=== PATIENT | female | born 1995 | race African-American/Black ===

== ENCOUNTER 2016-06-19 15:18 | Emergency (ER) | payer OTHER ==
[~2016-06-19] VITALS: Ht 157.5 cm; Wt 52.2 kg
[2016-06-19 15:23] VITALS: BP 122/74
--- NOTE | 2016-06-19 16:04 | PHYS DOC ---
Past Medical History Past Medical History: No Pertinent History Additional Past Medical Histor: sickle cell trait Past Surgical History: , Tonsillectomy Alcohol Use: None Drug Use: None Adult General Chief Complaint Chief Complaint: BACK PAIN OR INJURY [facility] HPI Patient is a 20 year old female with no significant medical history who presents with mid back pain injured her left abdominal pain that has been going on for week. Patient states she believes she is constipated, she states her last bowel movement was one week ago. Patient denies any fever nausea vomiting. Denies any urgency frequency or dysuria. She states she is not sure if she is or not, she states she does not know when her last menstrual cycle was. Patient has been laughing and playing with the male friend since arrival to the Ed. Review of Systems Review of Systems Constitutional: Denies fever or chills [] Eyes: Denies change in visual acuity, redness, or eye pain [] HENT: Denies nasal congestion or sore throat [] Respiratory: Denies cough or shortness of breath [] Cardiovascular: No additional information not addressed in HPI [] GI: abdominal pain : Denies dysuria or hematuria [] Musculoskeletal: mid back pain Integument: Denies rash or skin lesions [] Neurologic: Denies headache, focal weakness or sensory changes [] Endocrine: Denies polyuria or polydipsia [] Current Medications Current Medications Current Medications Medications (Trade) Dose Ordered Sig/Nely Start Time Stop Time Status Last Admin Dose Admin Magnesium Citrate (Citroma) 296 ml 1X ONCE 06/19/16 18:00 06/19/16 18:01 Allergies Allergies Allergies Coded Allergies Type Severity Reaction Last Updated Verified No Known Drug Allergies 02/19/14 No Physical Exam Physical Exam Constitutional: Well developed, well nourished, no acute distress, non-toxic appearance. [] HENT: Normocephalic, atraumatic, bilateral external ears normal, oropharynx moist, no oral exudates, nose normal. [] Eyes: PERRLA, EOMI, conjunctiva normal, no discharge. [] Neck: Normal range of motion, no tenderness, supple, no stridor. [] Cardiovascular:Heart rate regular rhythm, no murmur [] Lungs & Thorax: Bilateral breath sounds clear to auscultation [] Abdomen: Bowel sounds normal, soft, no tenderness, no masses, no pulsatile masses. [] Skin: Warm, dry, no erythema, no rash. [] Back: No tenderness, no CVA tenderness. [] Extremities: No tenderness, no cyanosis, no clubbing, ROM intact, no edema. [] Neurologic: Alert and oriented X 3, normal motor function, normal sensory function, no focal deficits noted. [] Psychologic: Affect normal, judgement normal, mood normal. [] Current Patient Data Vital Signs Vital Signs Date Time Temp Pulse Resp B/P Pulse Ox O2 Delivery O2 Flow Rate FiO2 06/19/16 15:23 98.1 83 16 122/74 100 Room Air 98.1 Lab Values Laboratory Tests Test 06/19/16 17:05 Urine Collection Type Unknown Urine Color Yellow Urine Clarity Clear Urine pH 7.5 Urine Specific [place] 1.010 Urine Protein Negativemg/dL (NEG-TRACE) Urine Glucose (UA) Negativemg/dL (NEG) Urine Ketones (Stick) Negativemg/dL (NEG) Urine Blood Negative (NEG) Urine Nitrite Negative (NEG) Urine Bilirubin Negative (NEG) Urine Urobilinogen Dipstick 0.2mg/dL (0.2 mg/dL) Urine Leukocyte Esterase Negative (NEG) Urine RBC 0/HPF (0-2) Urine WBC 0/HPF (0-4) Urine Squamous Epithelial Cells Few/LPF Urine Bacteria 0/HPF (0-FEW) Urine Mucus Mod/LPF EKG EKG [] Radiology/Procedures Radiology/Procedures []PROCEDURE: ACUTE ABDOMEN SERIES Abdomen series with chest, 3 views, 06/19/2016: History: Chronic abdominal pain, constipation There is gas and a moderate amount of stool scattered throughout the colon in a nonspecific pattern. No free air is seen in the abdomen. There is no evidence of organomegaly or abnormal abdominal calcifications. The heart size is normal. The lungs are clear. IMPRESSION: No acute abdominal abnormality is detected. DICTATED and SIGNED BY: ARIEL WATTERS MD DATE: 06/19/16 6445 CC: MIRIAM MILLS APRN; NO PCP ~ Course & Med Decision Making Course & Med Decision Making Pertinent Labs and Imaging studies reviewed. (See chart for details) Patient is in the Ed complaining of mid back pain and constipation with generalized abdominal pain. She has been laughing and playing with the boy friend since she came to the Ed. Her last bowel movement was one week ago, she denies any nausea vomiting. Negative urine hCG, acute abdominal series interpreted by radiologist is negative for any acute findings but noted for gas and moderate amount of stool scattered throughout the colon in nonspecific pattern. Patient was given magnesium citrate in the ED and discharged with the same. We talked about the need to increase dietary fiber intake. We talked about the need to increase water intake. Educated patient on the dangers of taking narcotics especially the risk of increasing constipation because she was asking for oxycodone. Urine analysis is negative for infection. Discharged with MiraLAX, magnesium citrate, recommended enemas, naproxen and Flexeril for her back pain. Follow-up with PCP in 1-2 weeks as needed. Patient is complaining stating she is here to receive documents stating she can not lift anything greater than 20 pounds, she states she needs disability paperwork filled out showing she can not work. She states she's had trouble getting this paperwork filled out because no one is willing to fill it out. She is very argumentative. Informed her I can give her a note stating she cannot lift anything more than 20 pounds for 3 days but nothing more than that. Informed her if she needs a disability paperwork filled out she needs to see a primary care doctor, i gave her a list of PCP's she states she does not want the list because she's been through this before and every doctor has refused to fill it. Informed patient I currently do not have any reason why she should be on disability. Informed patient emergency care does not involve feeling out documentation for disability hence she needs to see a primary care doctor for this. Attempted to give her primary care doctor's list, she stood up and left and refused all the paperwork. Dragon Disclaimer Dragon Disclaimer This electronic medical record was generated, in whole or in part, using a voice recognition dictation system. Departure Departure Impression: Primary Impression: Constipation Additional Impression: Back pain Disposition: 01 HOME, SELF-CARE Condition: STABLE Referrals: NO PCP (PCP) Follow-up with your primary care doctor in one week Patient Instructions: Back Pain, Adult, Constipation, Adult Additional Instructions: Your abdominal x-ray is noted for constipation. Please do not take any narcotics including hydrocodone and oxycodone because this will increase your constipation making it worse. Please increase your dietary fiber intake as well as a water intake to 64 ounces a day. Please consider taking MiraLAX every day to prevent constipation. Please take magnesium citrate every day until you have a bowel movement. Consider doing an enema once at night until your bowels start to move. Come back to the ED symptoms worsen. Scripts Cyclobenzaprine Hcl 10 Mg Tablet1 Tab PO TID #30 TAB Prov:MIRIAM MILLS APRN 06/19/16 Naproxen 500 Mg Tablet.dr1 Tab PO BID #60 TAB Ref 2 Prov:MIRIAM MILLS APRN 06/19/16 Magnesium Citrate 296 Ml [id number] Ml PO ONCE #296 ML Prov:MIRIAM MILLS APRN 06/19/16 Polyethylene Glycol 3350 (Miralax)17 Gm Powd.pack1 Packet PO DAILY #30 PACKET Ref 3 Prov:MIRIAM MILLS APRN 06/19/16 Problem Qualifiers Primary Impression: Constipation Constipation type: unspecified constipation type Qualified Code: K59.00 - Constipation, unspecified Additional Impression: Back pain Back pain location: thoracic back pain Chronicity: acute Back pain laterality: bilateral Qualified Code: M54.6 - Pain in thoracic spine MIRIAM MILLS APRN Jun 19, 2016 16:04
--- NOTE | 2016-06-19 17:07 | RAD ---
Abdomen series with chest, 3 views, 06/19/2016: History: Chronic abdominal pain, constipation There is gas and a moderate amount of stool scattered throughout the colon in a nonspecific pattern. No free air is seen in the abdomen. There is no evidence of organomegaly or abnormal abdominal calcifications. The heart size is normal. The lungs are clear. IMPRESSION: No acute abdominal abnormality is detected.
[2016-06-19 17:17] LABS: BILIRUBIN,URINE NEGATIVE (NEG); GLUCOSE,URINE NEGATIVE (NEG); NITRITE,URINE NEGATIVE (NEG); PH,URINE 7.5; PROTEIN,URINE NEGATIVE (NEG-TRACE); UROBILINOGEN,URINE 0.2 mg/dL (0.2 mg/dL)
[2016-06-19 17:23] LABS: BACTERIA,URINE 0 /HPF (0-FEW); RBC,URINE 0 /HPF (0-2); SQUAMOUS EPITHELIAL CELL,UR FEW /LPF; WBC,URINE 0 /HPF (0-4)
[2016-06-19] MEDS ORDERED: NAPR500T8 PO (17:30)
[2016-06-19] MEDS ORDERED: MAGN296S PO (17:30)
[2016-06-19] MEDS ORDERED: POLY17PO5 PO (17:30)
[2016-06-19] MEDS ORDERED: CYCL10TA2 PO (17:30)
[2016-06-19] MEDS ORDERED: MAGNESIUM CITRATE 296 ML SOLUTION. PO ONE (18:00)
== END 2016-06-19 17:38 | disposition home or self-care (01) ==
LOC: ER 15:18
DX: K59.00 Constipation, unspecified (principal); M54.6 Pain in thoracic spine; D57.3 Sickle-cell trait; Z98.890 Other specified postprocedural states
CPT/HCPCS: 74022; 81001; 99285-25

== ENCOUNTER 2016-07-28 10:48 | Emergency (ER) | payer OTHER ==
[~2016-07-28] VITALS: Ht 157.5 cm; Wt 59.0 kg
[~2016-07-28 10:48] MED LIST: CYCL10TA2 PO; MAGN296S PO; NAPR500T8 PO; POLY17PO29 PO
--- NOTE | 2016-07-28 11:10 | PHYS DOC ---
Past Medical History Past Medical History: Other Additional Past Medical Histor: SICKLE CELL TRAIT, "BACK SPASMS" Past Surgical History: , Tonsillectomy Alcohol Use: None Drug Use: None Adult General Chief Complaint Chief Complaint: ABDOMINAL PAIN IN HPI HPI Patient is a 20 year old female who presents with suprapubic pain. She states been going on for 4 days. Nothing makes it better or worse. She does state that she's had issues with constipation and hasn't had a bowel movement for the last several days. She did have some nausea and vomiting and to [facility] this morning without any relief. She denies any dysuria or vaginal bleeding. She thinks she is about 6 weeks . She is a . She has had a history of gonorrhea, but she states his been "a minute ago". She is currently having a headache and states she took some Tylenol. Review of Systems Review of Systems Constitutional: Denies fever or chills [] Eyes: Denies change in visual acuity, redness, or eye pain [] HENT: Denies nasal congestion or sore throat [] Respiratory: Denies cough or shortness of breath [] Cardiovascular: No additional information not addressed in HPI [] GI: Positive for abdominal pain, Denies nausea, vomiting, bloody stools or diarrhea [] : Denies dysuria or hematuria [] Musculoskeletal: Denies back pain or joint pain [] Integument: Denies rash or skin lesions [] Neurologic: Denies headache, focal weakness or sensory changes [] Endocrine: Denies polyuria or polydipsia [] Current Medications Current Medications Current Medications Medications (Trade) Dose Ordered Sig/Nely Start Time Stop Time Status Last Admin Dose Admin Fentanyl Citrate (Fentanyl 2ml Vial) 50 mcg PRN Q15MIN PRN 07/28/16 13:15 07/28/16 15:06 DC 07/28/16 13:30 50 MCG Ondansetron HCl (Zofran) 4 mg 1X ONCE 07/28/16 13:00 07/28/16 13:01 DC 07/28/16 13:10 4 MG Sodium Chloride 1,000 ml @ 1,000 mls/hr 1X ONCE 07/28/16 13:00 07/28/16 13:59 DC 07/28/16 13:09 1,000 MLS/HR Allergies Allergies Allergies Coded Allergies Type Severity Reaction Last Updated Verified No Known Drug Allergies 02/19/14 No Physical Exam Physical Exam Constitutional: Well developed, well nourished, no acute distress, non-toxic appearance. [] HENT: Normocephalic, atraumatic, bilateral external ears normal, oropharynx moist, no oral exudates, nose normal. Tender to palpation over frontal and maxillary sinuses. Eyes: PERRLA, EOMI, conjunctiva normal, no discharge. [] Neck: Normal range of motion, no tenderness, supple, no stridor. [] Cardiovascular:Heart rate regular rhythm, no murmur [] Lungs & Thorax: Bilateral breath sounds clear to auscultation [] Abdomen: Bowel sounds normal, soft, tender to palpation in the suprapubic area, no masses, no pulsatile masses. Pelvic exam performed with a quality control checker at bedside, she is tender with the insertion of the speculum, she will not let me perform a bimanual exam, white discharge noted at the os, no bleeding noted. Skin: Warm, dry, no erythema, no rash. [] Back: No tenderness, no CVA tenderness. [] Extremities: No tenderness, no cyanosis, no clubbing, ROM intact, no edema. [] Neurologic: Alert and oriented X 3, normal motor function, normal sensory function, no focal deficits noted. [] Psychologic: Affect normal, judgement normal, mood normal. [] Current Patient Data Vital Signs Vital Signs Date Time Temp Pulse Resp B/P (MAP) Pulse Ox O2 Delivery O2 Flow Rate FiO2 07/28/16 14:18 77 98/50 (66) 100 Room Air 07/28/16 10:50 98.4 16 98.4 Lab Values Laboratory Tests Test 07/28/16 10:19 07/28/16 11:10 07/28/16 11:20 POC Urine HCG, Qualitative Hcg positive (Negative) Urine Collection Type Void Urine Color Yellow Urine Clarity Clear Urine pH 6.5 Urine Specific [place] >=1.030 Urine Protein Negative mg/dL (NEG-TRACE) Urine Glucose (UA) Negative mg/dL (NEG) Urine Ketones (Stick) >=80 mg/dL (NEG) Urine Blood Negative (NEG) Urine Nitrite Negative (NEG) Urine Bilirubin Negative (NEG) Urine Urobilinogen Dipstick 1.0 mg/dL (0.2 mg/dL) Urine Leukocyte Esterase Trace (NEG) Urine RBC 1-2 /HPF (0-2) Urine WBC Occ /HPF (0-4) Urine Squamous Epithelial Cells Many /LPF Urine Bacteria Few /HPF (0-FEW) Urine Mucus Marked /LPF White Blood Count 4.2 x10^3/uL (4.0-11.0) Red Blood Count 4.09 x10^6/uL (3.50-5.40) Hemoglobin 9.8 g/dL (12.0-15.5) L Hematocrit 30.1 % (36.0-47.0) L Mean Corpuscular Volume 74 fL (79-100) L Mean Corpuscular Hemoglobin 24 pg (25-35) L Mean Corpuscular Hemoglobin Concent 32 g/dL (31-37) Red Cell Distribution Width 13.8 % (11.5-14.5) Platelet Count 264 x10^3/uL (140-400) Neutrophils (%) (Auto) 50 % (31-73) Lymphocytes (%) (Auto) 37 % (24-48) Monocytes (%) (Auto) 11 % (0-9) H Eosinophils (%) (Auto) 1 % (0-3) Basophils (%) (Auto) 1 % (0-3) Neutrophils # (Auto) 2.1 x10^3uL (1.8-7.7) Lymphocytes # (Auto) 1.6 x10^3/uL (1.0-4.8) Monocytes # (Auto) 0.5 x10^3/uL (0.0-1.1) Eosinophils # (Auto) 0.0 x10^3/uL (0.0-0.7) Basophils # (Auto) 0.0 x10^3/uL (0.0-0.2) Prothrombin Time 14.2 SEC (11.7-14.0) H Prothrombin Time INR 1.2 (0.8-1.1) H PTT 26 SEC (24-38) Maternal Serum HCG Beta Subunit 15574 mIU/mL (0-6) H Sodium Level 136 mmol/L (136-145) Potassium Level 3.7 mmol/L (3.5-5.1) Chloride Level 101 mmol/L (98-107) Carbon Dioxide Level 22 mmol/L (21-32) Anion Gap 13 (6-14) Blood Urea Nitrogen 9 mg/dL (7-20) Creatinine 0.6 mg/dL (0.6-1.0) Estimated GFR (Cockcroft-Gault) 154.2 Glucose Level 84 mg/dL (70-99) Calcium Level 9.1 mg/dL (8.5-10.1) Magnesium Level 1.7 mg/dL (1.8-2.4) L Laboratory Tests 07/28/16 11:20 Laboratory Tests 07/28/16 11:20 Microbiology 07/28/16 Wet Prep - Final, Complete Microbiology 07/28/16 Wet Prep - Final, Complete EKG EKG [] Radiology/Procedures Radiology/Procedures [facility] [address] [place] [address] IMAGING REPORT Signed PATIENT: RAINA HENSON ACCOUNT: [id number] : 1995 LOCATION: ER AGE: 20 SEX: F EXAM STATUS: REG ER ORD. PHYSICIAN: MARGARETH GAYTAN MD REASON: abd pain PROCEDURE: OB < 14 WKS Early OB ultrasound History: Pelvic pain. Technique: Real-time grayscale sonographic images of the gravid uterus were performed transabdominally. Comparison: None. Findings: Transabdominal imaging: Uterus measures 12.1 cm in length. Single live intrauterine is identified with gestational sac, yolk sac, and embryonic pole seen. [place]-rump length is 8.7 mm corresponding to 6 weeks 6 days. Estimated delivery based on this measurement is 2017. Embryonic heart motion is 135 bpm. Right ovary measures 4.1 x 2.9 x 1.5 cm and demonstrates a hemorrhagic corpus luteum cyst. Left ovary measures 1.7 x 3.1 x 2.3 cm and is unremarkable. Both ovaries demonstrate normal vascular flow upon Doppler interrogation and are without evidence of torsion. Impression: 1. Single live intrauterine . Average ultrasound age is 6 weeks 6 days. Estimated date of delivery is March 17, 2017. DICTATED and SIGNED BY: MARIBEL CORNELIUS MD DATE: 07/28/16 1212 CC: MARGARETH GAYTAN MD; NO PCP ~ Impressions: abdominal pain in uti in sinusitis nausea Dehydration Course & Med Decision Making Course & Med Decision Making Pertinent Labs and Imaging studies reviewed. (See chart for details) RUN DATE: 07/28/16 PAGE 1 RUN TIME: 1202 [facility] [address] [place] [address] Deonte Eric M.D., [employer] Administrator PATIENT: RAINA HENSON ACCT: [id number] LOC: [place] U : [id number] AGE/SX: ROOM: REG : 07/28/[address]: MARGARETH GAYTAN MD : 1995 BED: DIS : STATUS: REG [place] TLOC: SPEC #: [id number] YVETTE: 07/28/16 STATUS: COMP REQ #: [id number] RECD: 07/28/[address] [facility] [address]: MARGARETH GAYTAN MD SOURCE: VAGINAL ENTR: 07/28/16-[address]: АНДРЕЙ MCCORMICK SPDESC: ORDERED: WET PREP COMMENTS: Has specimen been collected/obtained? Y Procedure Result WET PREP Final YEAST NONE SEEN TRICHOMONAS NONE SEEN CLUE CELLS NONE SEEN WBCS OCCASIONAL SQUAMOUS EPS MANY END OF REPORT U/s does not show any acute abnormalities. labs non acute. She received IV fluids and feels better. Her headache is likely sinusitis. She has issues with constipation and is agreeable to miralax and antinausea meds. Do not believe she has any thing bad going on in her pelvis with a reassuring ultrasound of her IUP. She is being discharged with Augmentin that will cover her urine in addition to her sinus infection. She is being prescribed claritin, rhinocort nasal steroid that should help with the pressure of her sinus infection. Return precautions given and she can follow up with Dr. Rinaldi if she doesnt have an OBGYN that she can see. Pt is in stable condition at this time and being discharged home. Dragon Disclaimer Dragon Disclaimer This electronic medical record was generated, in whole or in part, using a voice recognition dictation system. Departure Departure Impression: Primary Impression: Abdominal pain during Additional Impression: Sinusitis Disposition: HOME, SELF-CARE Condition: STABLE Referrals: NO PCP (PCP) OSKAR RINALDI Jr, MD Patient Instructions: - Urinary Tract Infection, Sinusitis Additional Instructions: You likely has a sinus infection and this is the headache that you are describing. You are being discharged with Augmentin for 7 days, Zofran, Claritin and budesonide nasal spray. This should help you with your sinus infection and your bladder infection. You should follow-up with her [facility] physician, return ER for fevers, neck stiffness, worsening headache or other concerns. Scripts Budesonide (Budesonide Nasal [place]) 8.6 Gm [place].pump 1 SPRAY NS DAILY, #1 EACH Prov: MARGARETH GAYTAN MD 07/28/16 Ondansetron (ZOFRAN ODT) 4 Mg Tab.rapdis 4 MG PO BID Y for NAUSEA/VOMITING, #14 TAB Prov: MARGARETH GAYTAN MD 07/28/16 Amoxicillin/Potassium Clav (AUGMENTIN 875-125 TABLET) 1 Each Tablet 1 TAB PO BID, #14 TAB Prov: MARGARETH GAYTAN MD 07/28/16 Loratadine (CLARITIN) 10 Mg Capsule 10 MG PO DAILY for 30 Days, #30 CAP Prov: MARGARETH GAYTAN MD 07/28/16 Problem Qualifiers Primary Impression: Abdominal pain during Trimester: first trimester Qualified Codes: O26.891 - Other specified related conditions, first trimester; R10.9 - Unspecified abdominal pain Additional Impression: Sinusitis Sinusitis location: frontal Chronicity: acute Recurrence: not specified as recurrent Qualified Codes: J01.10 - Acute frontal sinusitis, unspecified MARGARETH GAYTAN MD July 28, 2016 11:10
[2016-07-28 11:27] LABS: BILIRUBIN,URINE NEGATIVE (NEG); GLUCOSE,URINE NEGATIVE (NEG); NITRITE,URINE NEGATIVE (NEG); PH,URINE 6.5; PROTEIN,URINE NEGATIVE (NEG-TRACE)
[2016-07-28 11:38] LABS: BACTERIA,URINE FEW /HPF (0-FEW); SQUAMOUS EPITHELIAL CELL,UR MANY /LPF; WBC,URINE OCC /HPF (0-4)
[2016-07-28 11:46] LABS: INR 1.2 (0.8-1.1); PROTHROMBIN TIME PATIENT 14.2 SEC (11.7-14.0)
[2016-07-28 11:47] LABS: BASO % 1 % (0-3); EOS % 1 % (0-3); HEMATOCRIT 30.1 % (36.0-47.0); HEMOGLOBIN 9.8 g/dL (12.0-15.5); LYMPH # 1.6 x10^3/uL (1.0-4.8); LYMPH % 37 % (24-48); MEAN CORPUSCULAR HEMOGLOBIN 24 pg (25-35); MEAN CORPUSCULAR HGB CONC 32 g/dL (31-37); MEAN CORPUSCULAR VOLUME 74 fL (79-100); MONO % 11 % (0-9); NEUT % 50 % (31-73); PLATELET COUNT 264 x10^3/uL (140-400); RED BLOOD COUNT 4.09 x10^6/uL (3.50-5.40); RED CELL DISTRIBUTION WIDTH 13.8 % (11.5-14.5); WHITE BLOOD COUNT 4.2 x10^3/uL (4.0-11.0)
[2016-07-28 11:57] LABS: CALCIUM 9.1 mg/dL (8.5-10.1); CREATININE 0.6 mg/dL (0.6-1.0); GFR 154.2; MAGNESIUM 1.7 mg/dL (1.8-2.4); POTASSIUM 3.7 mmol/L (3.5-5.1)
--- NOTE | 2016-07-28 12:17 | RAD ---
Early OB ultrasound History: Pelvic pain. Technique: Real-time grayscale sonographic images of the gravid uterus were performed transabdominally. Comparison: None. Findings: Transabdominal imaging: Uterus measures 12.1 cm in length. Single live intrauterine is identified with gestational sac, yolk sac, and embryonic pole seen. [place]-rump length is 8.7 mm corresponding to 6 weeks 6 days. Estimated delivery based on this measurement is 2017. Embryonic heart motion is 135 bpm. Right ovary measures 4.1 x 2.9 x 1.5 cm and demonstrates a hemorrhagic corpus luteum cyst. Left ovary measures 1.7 x 3.1 x 2.3 cm and is unremarkable. Both ovaries demonstrate normal vascular flow upon Doppler interrogation and are without evidence of torsion. Impression: 1. Single live intrauterine . Average ultrasound age is 6 weeks 6 days. Estimated date of delivery is March 17, 2017.
[2016-07-28] MEDS ORDERED: IV NORMAL SALINE 1000ML BAG 1,000 ML IV ONE (13:00)
[2016-07-28] MEDS ORDERED: ONDANSETRON PF 4 MG/2 ML VIAL. IV ONE (13:00)
[2016-07-28] MEDS ORDERED: fentaNYL PF VIAL 100 MCG/2 ML VIAL IV PRN (13:15)
[2016-07-28 14:18] VITALS: BP 98/50
[2016-07-28] MEDS ORDERED: ONDA4TAB10 PO (14:53)
[2016-07-28] MEDS ORDERED: AMOX1TAB61 PO (14:53)
[2016-07-28] MEDS ORDERED: LORA10CA PO (14:53)
[2016-07-28] MEDS ORDERED: BUDE8.6S6 NS (14:57)
== END 2016-07-28 15:01 | disposition home or self-care (01) ==
LOC: ER 10:48
DX: O26.891 Other specified pregnancy related conditions, first trimester (principal); R10.2 Pelvic and perineal pain; R10.30 Lower abdominal pain, unspecified; O99.511 Diseases of the respiratory system complicating pregnancy, first trimester; J01.10 Acute frontal sinusitis, unspecified; J01.00 Acute maxillary sinusitis, unspecified; K59.00 Constipation, unspecified; R51 Headache; O99.011 Anemia complicating pregnancy, first trimester; D57.3 Sickle-cell trait; Z3A.01 Less than 8 weeks gestation of pregnancy; Z98.890 Other specified postprocedural states
CPT/HCPCS: 36415; 76801; 80048; 81001; 81025; 83735; 84702; 85027; 85610; 85730; 86900; 86901; 87086; 87491; 87591; 96361; 96374; 96375; 99285; J2405; J3010; J7030; Q0111

== ENCOUNTER 2016-08-24 15:14 | Emergency (ER) | payer OTHER ==
[~2016-08-24 15:14] MED LIST changes: +AMOX1TAB61 PO; +BUDE8.6S6 NS; +LORA10CA PO; -MAGN296S PO; +MAGN296S9 PO; +ONDA4TAB10 PO
[2016-08-24 15:28] VITALS: BP 118/76
[2016-08-24] MEDS ORDERED: ACETAMINOPHEN 325 MG TABLET. PO ONE (16:30)
[2016-08-24 16:31] LABS: BILIRUBIN,URINE NEGATIVE (NEG); GLUCOSE,URINE NEGATIVE (NEG); NITRITE,URINE NEGATIVE (NEG); PROTEIN,URINE NEGATIVE (NEG-TRACE); UROBILINOGEN,URINE 0.2 mg/dL (0.2 mg/dL)
[2016-08-24 16:41] LABS: BACTERIA,URINE FEW /HPF (0-FEW); RBC,URINE 0 /HPF (0-2); SQUAMOUS EPITHELIAL CELL,UR OCC /LPF; WBC,URINE OCC /HPF (0-4)
[2016-08-24] MEDS ORDERED: METR70GE14 VG (16:58)
[2016-08-24] MEDS ORDERED: ONDA4TAB10 SL (16:58)
--- NOTE | 2016-08-24 16:58 | PHYS DOC ---
Past Medical History Past Medical History: Other Additional Past Medical Histor: SICKLE CELL TRAIT, "BACK SPASMS" Past Surgical History: , Tonsillectomy Alcohol Use: None Drug Use: None Adult General Chief Complaint Chief Complaint: HEADACHE HPI HPI Patient is a 20 year old female who presents with complaint of abdominal pain, nausea, and headache. Patient is approximately 10 weeks estimated gestational age. Patient was seen 3 weeks ago in the emergency department for abdominal pain. Patient had ultrasound imaging that confirmed intrauterine at that time. Patient states that she has been having intermittent pains in her hips and her abdomen during her . Patient has been taking Tylenol with minimal relief in symptoms. The patient states that she has been having malodorous discharge over the past few days and has had increasing nausea. Patient states that her headache is a frontal headache and is mild at this time. Patient has not seen an APPLICATIONS ENGINEERING MANAGER or other physician at this time. Patient rates her pain as 8 out of 10 currently. Review of Systems Review of Systems Constitutional: Denies fever or chills [] Eyes: Denies change in visual acuity, redness, or eye pain [] HENT: Denies nasal congestion or sore throat [] Respiratory: Denies cough or shortness of breath [] Cardiovascular: Denies chest pain or edema [] GI: Abdominal pain, nausea, vomiting, denies bloody stools or diarrhea [] : Vaginal discharge, denies vaginal bleeding, dysuria or hematuria [] Musculoskeletal: Denies back pain or joint pain [] Integument: Denies rash or skin lesions [] Neurologic: Headache, denies focal weakness or sensory changes [] Current Medications Current Medications Current Medications Medications (Trade) Dose Ordered Sig/Nely Start Time Stop Time Status Last Admin Dose Admin Acetaminophen (Tylenol) 650 mg 1X ONCE 08/24/16 16:30 08/24/16 16:31 DC 08/24/16 16:36 650 MG Ondansetron HCl (Zofran Odt) 8 mg 1X ONCE 08/24/16 17:00 08/24/16 17:01 DC Allergies Allergies Allergies Coded Allergies Type Severity Reaction Last Updated Verified No Known Drug Allergies 02/19/14 No Physical Exam Physical Exam Constitutional: Alert, afebrile, no acute distress. [] HENT: Normocephalic, atraumatic, bilateral external ears normal, oropharynx moist, no oral exudates, nose normal. [] Eyes: PERRLA, EOMI, conjunctiva normal, no discharge. [] Neck: Normal range of motion, no tenderness, supple, no stridor. [] Cardiovascular:Heart rate regular rhythm, no murmur [] Lungs & Thorax: Bilateral breath sounds clear to auscultation [] Abdomen: Bowel sounds normal, soft, suprapubic tenderness to palpation, no masses, no pulsatile masses. Pelvic: Normal external exam, malodorous clearish discharge in vaginal canal, no blood in vaginal canal, cervical os is closed, no cervical motion tenderness , no midline or bilateral adnexal tenderness on palpation [] Skin: Warm, dry, no erythema, no rash. [] Back: No tenderness, no CVA tenderness. [] Extremities: No tenderness, no cyanosis, no clubbing, ROM intact, no edema. [] Neurologic: Alert and oriented X 3, normal motor function, normal sensory function, no focal deficits noted. [] Current Patient Data Vital Signs Vital Signs Date Time Temp Pulse Resp B/P (MAP) Pulse Ox O2 Delivery O2 Flow Rate FiO2 08/24/16 15:28 98.9 72 16 118/76 (90) 100 Room Air 98.9 Lab Values Laboratory Tests Test 08/24/16 14:57 08/24/16 15:50 POC Urine HCG, Qualitative Hcg positive (Negative) Urine Color Yellow Urine Clarity Clear Urine pH 7.0 Urine Specific [place] 1.020 Urine Protein Negative mg/dL (NEG-TRACE) Urine Glucose (UA) Negative mg/dL (NEG) Urine Ketones (Stick) Negative mg/dL (NEG) Urine Blood Negative (NEG) Urine Nitrite Negative (NEG) Urine Bilirubin Negative (NEG) Urine Urobilinogen Dipstick 0.2 mg/dL (0.2 mg/dL) Urine Leukocyte Esterase Negative (NEG) Urine RBC 0 /HPF (0-2) Urine WBC Occ /HPF (0-4) Urine Squamous Epithelial Cells Occ /LPF Urine Bacteria Few /HPF (0-FEW) Urine Mucus Mod /LPF Microbiology 08/24/16 Wet Prep - Final, Complete EKG EKG Not performed [] Radiology/Procedures Radiology/Procedures Limited bedside transabdominal ultrasound performed and interpreted by myself: Viable intrauterine , heart rate 165 bpm, frequent movements, no adnexal masses or fluid present [] Course & Med Decision Making Course & Med Decision Making Pertinent Labs and Imaging studies reviewed. (See chart for details) Patient's wet prep showed evidence of bacterial vaginosis which is likely exacerbating the patient's symptoms of nausea and lower abdominal pain. Patient was written for prescription for MetroGel for treatment. Patient given Zofran in the emergency department for nausea. Patient was referred to Dr. Angeles as she is currently looking for a female APPLICATIONS ENGINEERING MANAGER to establish care. Advise follow-up in 1-2 weeks. Recommended return emergency department for any worsening symptoms. Patient voiced understanding and in agreement with treatment plan. Dragon Disclaimer Dragon Disclaimer This electronic medical record was generated, in whole or in part, using a voice recognition dictation system. Departure Departure Impression: Primary Impression: Bacterial vaginosis Additional Impression: Abdominal pain during Disposition: 01 HOME, SELF-CARE Condition: IMPROVED Referrals: NO PCP (PCP) BE ARTEAGA MD Patient Instructions: Abdominal Pain During , Bacterial Vaginosis Additional Instructions: Follow-up with your OB doctor in the next 1-2 weeks. Return to the emergency department for any worsening symptoms. Scripts Ondansetron (ZOFRAN ODT) 4 Mg Tab.rapdis 1 TAB SL Q8HRS Y for NAUSEA/VOMITING, #15 TAB Prov: CAMILLE GARCIA MD 08/24/16 Metronidazole (METROGEL-VAGINAL) 70 Gm Gel.w.appl 1 APPFUL VG QHS for 7 Days, #70 GM Prov: CAMILLE GARCIA MD 08/24/16 Problem Qualifiers Additional Impression: Abdominal pain during Trimester: first trimester Qualified Codes: O26.891 - Other specified related conditions, first trimester; R10.9 - Unspecified abdominal pain CAMILLE GARCIA MD Aug 24, 2016 16:58
[2016-08-24] MEDS ORDERED: ONDANSETRON ODT 4 MG TAB.RAPDIS. PO ONE (17:00)
== END 2016-08-24 17:15 | disposition home or self-care (01) ==
LOC: ER 15:14
DX: O23.591 Infection of other part of genital tract in pregnancy, first trimester (principal); N76.0 Acute vaginitis; B96.89 Other specified bacterial agents as the cause of diseases classified elsewhere; Z3A.10 10 weeks gestation of pregnancy
CPT/HCPCS: 81001; 81025; 87491; 87591; 99285; Q0111

== ENCOUNTER 2016-10-30 09:34 | Emergency (ER) | payer OTHER ==
[~2016-10-30] VITALS: Ht 157.5 cm; Wt 48.5 kg
[~2016-10-30 09:34] MED LIST changes: +METR70GE14 VG; +ONDA4TAB10 SL
[2016-10-30 11:20] LABS: BILIRUBIN,URINE NEGATIVE (NEG); GLUCOSE,URINE NEGATIVE (NEG); NITRITE,URINE NEGATIVE (NEG); PH,URINE 7.5; PROTEIN,URINE NEGATIVE (NEG-TRACE)
[2016-10-30 11:26] LABS: SQUAMOUS EPITHELIAL CELL,UR FEW /LPF
[2016-10-30 11:27] LABS: BACTERIA,URINE FEW /HPF (0-FEW); RBC,URINE 0 /HPF (0-2)
[2016-10-30] MEDS ORDERED: CEPHALEXIN 250 MG CAPSULE. PO ONE (11:45)
[2016-10-30] MEDS ORDERED: CEPH-263 PO (11:46)
--- NOTE | 2016-10-30 11:47 | PHYS DOC ---
Past Medical History Past Medical History: Other Additional Past Medical Histor: SICKLE CELL TRAIT, "BACK SPASMS" Past Surgical History: , Tonsillectomy Alcohol Use: None Drug Use: None Adult General Chief Complaint Chief Complaint: ABDOMINAL PAIN IN HPI HPI 20-year-old female presenting to the emergency department today with abdominal pain. She is approximately 18 weeks by last menstrual period. Her pain is moderate to mild intermittent nonradiating without alleviating factors. She denies any vaginal bleeding fevers or chills at home. She has had nausea with one episode of vomiting. Review of systems is negative for fevers chills. Negative for headache confusion cyanosis lethargy. She denies vaginal bleeding or recent trauma. All other review of systems is negative unless otherwise noted in history of present illness. ED course: 20-year-old female presenting to the emergency department today with abdominal pain and . Vital signs unremarkable. Although patient reports she is 18 weeks by last menstrual period, after calculating her gestational age by previous ultrasound it appears that the patient is approximately 20 weeks and 2 days . I do not believe the patient has acute appendicitis. The patient does have asymptomatic bacteriuria for which we will give her Keflex. Pertinent physical examination findings showed a nontender abdomen was soft and without rebound tenderness or guarding. Negative McBurney's point when adjusted for gestational age. Given the patient's gestational age, we will send the patient to labor and delivery for evaluation of the fetus. Review of Systems Review of Systems SEE ABOVE. Allergies Allergies Allergies Coded Allergies Type Severity Reaction Last Updated Verified No Known Drug Allergies 02/19/14 No Physical Exam Physical Exam SEE ABOVE Constitutional: Well developed, well nourished, no acute distress, non-toxic appearance. HENT: Normocephalic, atraumatic, bilateral external ears normal, oropharynx moist, no oral exudates, nose normal. [] Eyes: PERRLA, EOMI, conjunctiva normal, no discharge. Neck: Normal range of motion, no tenderness, supple, no stridor. [] Cardiovascular:Heart rate regular rhythm, no murmur Lungs & Thorax: Bilateral breath sounds clear to auscultation [] Abdomen: Gravid abdomen that is Nontender . Negative McBurney's point. Negative Becker sign. Skin: Warm, dry, no erythema, no rash. [] Back: No tenderness, no CVA tenderness. Extremities: No tenderness, no cyanosis, no clubbing, ROM intact, no edema. [] Neurologic: Alert and oriented X 3, normal motor function, normal sensory function, no focal deficits noted. Psychologic: Affect normal, judgement normal, mood normal. [] Current Patient Data Lab Values Laboratory Tests Test 10/30/16 09:12 10/30/16 11:00 POC Urine HCG, Qualitative Hcg positive (Negative) Urine Collection Type Unknown Urine Color Yellow Urine Clarity Cloudy Urine pH 7.5 Urine Specific [place] 1.025 Urine Protein Negative mg/dL (NEG-TRACE) Urine Glucose (UA) Negative mg/dL (NEG) Urine Ketones (Stick) 15 mg/dL (NEG) Urine Blood Negative (NEG) Urine Nitrite Negative (NEG) Urine Bilirubin Negative (NEG) Urine Urobilinogen Dipstick 1.0 mg/dL (0.2 mg/dL) Urine Leukocyte Esterase Negative (NEG) Urine RBC 0 /HPF (0-2) Urine WBC 1-4 /HPF (0-4) Urine Squamous Epithelial Cells Few /LPF Urine Amorphous Sediment Present /HPF Urine Bacteria Few /HPF (0-FEW) Urine Mucus Mod /LPF EKG EKG [] Radiology/Procedures Radiology/Procedures [] Course & Med Decision Making Course & Med Decision Making Pertinent Labs and Imaging studies reviewed. (See chart for details) [] Dragon Disclaimer Dragon Disclaimer This electronic medical record was generated, in whole or in part, using a voice recognition dictation system. Departure Departure Impression: Primary Impression: Abdominal pain Additional Impression: Abdominal pain affecting Disposition: 01 HOME, SELF-CARE Condition: STABLE Referrals: NO PCP (PCP) Scripts Cephalexin (KEFLEX) 250 Mg Capsule 1 CAP PO QID, #28 CAP Prov: MATHEW MORALES MD 10/30/16 Problem Qualifiers MATHEW MORALES MD Oct 30, 2016 11:47
[2016-10-30 12:40] VITALS: BP 103/57
== END 2016-10-30 12:49 | disposition home or self-care (01) ==
LOC: ER 09:34
DX: O26.892 Other specified pregnancy related conditions, second trimester (principal); R10.9 Unspecified abdominal pain; Z3A.18 18 weeks gestation of pregnancy
CPT/HCPCS: 81001; 81025; 99283

== ENCOUNTER 2016-10-30 12:46 | Observation (INO) | payer OTHER ==
[~2016-10-30 12:46] MED LIST changes: +CEPH-263 PO
== END 2016-10-30 14:30 | disposition home or self-care (01) ==
LOC: 3 SO LND 12:46
PROVIDERS: ADMIT Specialist; ATTEND Specialist
DX: O23.42 Unspecified infection of urinary tract in pregnancy, second trimester (principal); Z3A.20 20 weeks gestation of pregnancy
CPT/HCPCS: G0378; G0379

== ENCOUNTER 2017-03-25 18:05 | Emergency (ER) | payer OTHER ==
[2017-03-25 20:38] LABS: BILIRUBIN,URINE NEGATIVE (NEG); CLARITY,URINE CLOUDY; COLOR,URINE YELLOW; GLUCOSE,URINE NEGATIVE (NEG); NITRITE,URINE NEGATIVE (NEG); PH,URINE 5.5; PROTEIN,URINE NEGATIVE (NEG-TRACE); UROBILINOGEN,URINE 0.2 mg/dL (0.2 mg/dL)
[2017-03-25 20:43] LABS: BACTERIA,URINE FEW /HPF (0-FEW); RBC,URINE 0 /HPF (0-2); SQUAMOUS EPITHELIAL CELL,UR MOD /LPF
== END 2017-03-25 21:05 | disposition home or self-care (01) ==
LOC: ER 21:05
DX: O86.20 Urinary tract infection following delivery, unspecified (principal)
CPT/HCPCS: 81001; 87086; 99284

== ENCOUNTER 2019-03-20 14:05 | Emergency (ER) | payer MEDICAID, OTHER ==
[~2019-03-20] VITALS: Ht 157.5 cm; Wt 54.0 kg
[~2019-03-20 14:05] MED LIST changes: +CEPH-264 PO; +MAGN296S68 PO; -MAGN296S9 PO
[2019-03-20 15:13] LABS: BILIRUBIN,URINE NEGATIVE (NEG); CLARITY,URINE CLEAR; COLOR,URINE YELLOW; NITRITE,URINE NEGATIVE (NEG); PH,URINE 7.5; PROTEIN,URINE NEGATIVE (NEG-TRACE); UROBILINOGEN,URINE 0.2 mg/dL (0.2 mg/dL)
[2019-03-20 15:20] LABS: AMORPHOUS SEDIMENT,UR PRESENT /HPF; BACTERIA,URINE FEW /HPF (0-FEW); RBC,URINE 0 /HPF (0-2); SQUAMOUS EPITHELIAL CELL,UR MOD /LPF; WBC,URINE OCC /HPF (0-4)
--- NOTE | 2019-03-20 15:36 | PHYS DOC ---
Past Medical History Past Medical History: No Pertinent History Additional Past Medical Histor: SICKLE CELL TRAIT, "BACK SPASMS" Past Surgical History: Alcohol Use: None Drug Use: None Adult General Chief Complaint Chief Complaint: nausea and misting menstruation [facility] Patient is a 23 year old female with history of sickle cell trait who presents with complaining of nausea and missing menstruation. Patient states she had her menstruation at the end of December and complaining of intermittent episodes of nausea and vomiting. Patient states she had 3 other pregnancies and had nausea and vomiting with one of her pregnancies. Patient complaining of discomfort in the lower abdomen and her back for more than 2 weeks. Patient denies vaginal bleeding, fever and chills, Patient did not have home test. Review of Systems Review of Systems Constitutional: Denies fever or chills [] Eyes: Denies change in visual acuity, redness, or eye pain [] HENT: Denies nasal congestion or sore throat [] Respiratory: Denies cough or shortness of breath [] Cardiovascular: No additional information not addressed in [facility] [] GI: Denies bloody stools or diarrhea [] : Denies dysuria or hematuria [] Musculoskeletal: Denies back pain or joint pain [] Integument: Denies rash or skin lesions [] Neurologic: Denies headache, focal weakness or sensory changes [] Endocrine: Denies polyuria or polydipsia [] All other systems were reviewed and found to be within normal limits, except as documented in this note. Allergies Allergies Allergies Coded Allergies Type Severity Reaction Last Updated Verified No Known Drug Allergies 02/19/14 No Physical Exam Physical Exam Constitutional: Well developed, well nourished, no acute distress, non-toxic appearance. [] HENT: Normocephalic, atraumatic, bilateral external ears normal, oropharynx moist, no oral exudates, nose normal. [] Eyes: PERRLA, EOMI, conjunctiva normal, no discharge. [] Neck: Normal range of motion, no tenderness, supple, no stridor. [] Cardiovascular:Heart rate regular rhythm, no murmur [] Lungs & Thorax: Bilateral breath sounds clear to auscultation [] Abdomen: Bowel sounds normal, soft, no tenderness, no masses, no pulsatile masses. [] Skin: Warm, dry, no erythema, no rash. [] Back: No tenderness, no CVA tenderness. [] Extremities: No tenderness, no cyanosis, no clubbing, ROM intact, no edema. [] Neurologic: Alert and oriented X 3, normal motor function, normal sensory function, no focal deficits noted. [] Psychologic: Affect normal, judgement normal, mood normal. [] Current Patient Data Vital Signs Vital Signs Date Time Temp Pulse Resp B/P (MAP) Pulse Ox O2 Delivery O2 Flow Rate FiO2 03/20/19 15:42 71 18 110/57 (74) 98 Room Air 03/20/19 15:00 98.6 98.6 Lab Values Laboratory Tests Test 03/20/19 14:45 03/20/19 14:49 Urine Collection Type Unknown Urine Color Yellow Urine Clarity Clear Urine pH 7.5 Urine Specific [place] 1.025 Urine Protein Negative mg/dL (NEG-TRACE) Urine Glucose (UA) Negative mg/dL (NEG) Urine Ketones (Stick) Negative mg/dL (NEG) Urine Blood Negative (NEG) Urine Nitrite Negative (NEG) Urine Bilirubin Negative (NEG) Urine Urobilinogen Dipstick 0.2 mg/dL (0.2 mg/dL) Urine Leukocyte Esterase Negative (NEG) Urine RBC 0 /HPF (0-2) Urine WBC Occ /HPF (0-4) Urine Squamous Epithelial Cells Mod /LPF Urine Amorphous Sediment Present /HPF Urine Bacteria Few /HPF (0-FEW) Urine Mucus Marked /LPF POC Urine HCG, Qualitative Hcg positive (Negative) EKG EKG [] Radiology/Procedures Radiology/Procedures [] Course & Med Decision Making Course & Med Decision Making Pertinent Labs reviewed. (See chart for details) Evaluation of patient in ER showed 23-year-old female patient presented to ER because of missing. Patient mainly asking for test. Patient had positive urine test. Abdomen was soft and nontender patient did not have any vaginal bleeding. She was advised to follow-up with PERSONAL INJURY SPECIALIST. Dragon Disclaimer Dragon Disclaimer This electronic medical record was generated, in whole or in part, using a voice recognition dictation system. Departure Departure Impression: Primary Impression: Positive urine test Additional Impression: Nausea and vomiting during Disposition: HOME, SELF-CARE (153) Condition: STABLE Referrals: NO PCP (PCP) BE ARTEAGA MD Patient Instructions: Diet - Hyperemesis Gravidarum, Hyperemesis Gravidarum Additional Instructions: Drink plenty of liquids Follow-up with your PERSONAL INJURY SPECIALIST physician in 3-5 days Return to ER if not getting better Thank you for visiting [facility]. We appreciate you trusting us with your care. If any additional problems come up don't hesitate to return to visit us. Please follow up with your primary care provider so they can plan additional care if needed and know about the problem that you had. If symptoms worsen come back to the Emergency Department. Any concerning symptoms that start such as chest pain, shortness of air, weakness or numbness on one side of the body, running high fevers or any other concerning symptoms return to the ER. Problem Qualifiers JUNE BLANC MD Mar 20, 2019 15:36
[2019-03-20 15:42] VITALS: BP 110/57
== END 2019-03-20 15:45 | disposition home or self-care (01) ==
LOC: ER 14:05
DX: O21.9 Vomiting of pregnancy, unspecified (principal); Z98.890 Other specified postprocedural states; Z32.01 Encounter for pregnancy test, result positive
CPT/HCPCS: 81001; 81025; 99283

== ENCOUNTER → 2019-06-05 | Outpatient (CLI) | payer MEDICAID ==
--- NOTE | 2019-06-05 09:56 | KCIC ---
Left breast ultrasound: Reason for examination: Enlarging mass. 20 weeks . Comparison is made to previous study dated 10/25/2015. Left breast ultrasound including the axillary regions of the left breast was performed. At the 8:00 position 6 cm from the nipple and corresponding to the area of clinical concern, there is a hypoechoic mass with vascular flow which measures approximately 10 x 6.7 x 4.7 cm in greatest dimensions. This has increased in size since previous examination. This may represent a large fibroadenoma however phyllodes tumor cannot be excluded and further evaluation with biopsy is recommended. There are elongated cystic structures measuring up to 3.8 cm in length which probably reflect cystic ductal ectasia at the 9:00 position 6 cm from the nipple. No other cystic or solid nodules are seen. There also appears to be some cystic ductal ectasia in the retroareolar 8:00 position. No abnormal appearing lymph nodes are seen in the axilla. IMPRESSION: 10 x 6.7 x 4.7 cm hypoechoic mass with vascular flow at the 8:00 position 6 cm from the nipple of the left breast which corresponds to the area of clinical concern and has shown significant enlargement since previous exam. This may represent a large fibroadenoma however phyllodes tumor cannot be excluded and further evaluation with ultrasound-guided biopsy is recommended. BI-RADS Category 4: Suspicious. These findings have been discussed with the patient and Dr. Gentry Peñaloza's nurse, was notified about these findings at 9:50 AM on 06/05/2019. "Our facility is accredited by the [employer] Mammography Program." Electronically signed by: Nicole Guo MD (06/05/2019 9:53 AM) [facility]
--- NOTE | 2019-06-05 10:45 | KCIC ---
OB ULTRASOUND, > 14 WEEKS Clinical Indication: Size of fetus inconsistent with dates. Comparison: None. Technique: Multiple grayscale images, color Doppler, and M-mode images of the uterus are obtained. Findings: There is a single intrauterine gestation in variable presentation. The placenta is posterior in location without evidence of placenta previa. The amount of amniotic fluid appears appropriate. Amniotic fluid index is 10 cm. Cervical length is 5.1 cm. Biometrical data: BPD = 4.2 cm for 18 weeks 5 days. HC = 15.8 cm for 18 weeks 5 days. AC = 13.7 cm for 19 weeks 1 days. FL = 2.8 cm for 18 weeks 3 days. HC/AC ratio = 1.15. Overall, the estimated sonographic gestational age is 18 weeks and 5 days for an estimated date of delivery of November 01, 2019. The estimated date of delivery provided by the last menstrual period is unknown. Estimated weight is 258 +/- 38 grams. A 4 chamber heart is identified with positive cardiac activity. The estimated heart rate is 160 beats per minute. Bilateral upper and lower extremities are identified. There is a three-vessel cord with cord insertion visualized. stomach and urinary bladder are identified. Both kidneys are seen. The visualized spine and brain are unremarkable. No obvious anatomic abnormalities are identified. IMPRESSION: Single live intrauterine gestation with estimated sonographic gestational age of 18 weeks and 5 days. Electronically signed by: Masoud Shankar MD (06/05/2019 10:42 AM) [id number]
== END ==
LOC: KCIC US 08:11
PROVIDERS: ATTEND Obstetrics & Gynecology
DX: O26.893 Other specified pregnancy related conditions, third trimester (principal); O34.219 Maternal care for unspecified type scar from previous cesarean delivery; O26.842 Uterine size-date discrepancy, second trimester; N63.23 Unspecified lump in the left breast, lower outer quadrant; Z3A.18 18 weeks gestation of pregnancy
CPT/HCPCS: 76641; 76805

== ENCOUNTER 2021-01-12 16:24 | Emergency (ER) | payer MEDICAID ==
[~2021-01-12] VITALS: Ht 160 cm; Wt 59.9 kg
[~2021-01-12 16:24] MED LIST changes: +CYCL10TA19 PO; -CYCL10TA2 PO
[2021-01-12 17:30] VITALS: BP 112/80
--- NOTE | 2021-01-12 17:50 | PHYS DOC ---
Past Medical History Past Medical History: No Pertinent History Additional Past Medical Histor: SICKLE CELL TRAIT, "BACK SPASMS" Past Surgical History: Smoking Status: Current Every Day Smoker Alcohol Use: None Drug Use: None General Adult EDM: Chief Complaint: FINGER INJURY HPI: HPI: Patient is a 25-year-old female that presents today with right index finger pain. Patient states that yesterday that she was setting up a stage and she had a piece of equipment that smashed her of index finger. Patient has increased pain. No bleeding noted Review of Systems: Review of Systems: Constitutional: Denies fever or chills. [] Eyes: Denies change in visual acuity. [] HENT: Denies nasal congestion or sore throat. [] Respiratory: Denies cough or shortness of breath. [] Cardiovascular: Denies chest pain or edema. [] GI: Denies abdominal pain, nausea, vomiting, bloody stools or diarrhea. [] : Denies dysuria. [] Musculoskeletal: Right index finger pain Integument: Denies rash. [] Neurologic: Denies headache, focal weakness or sensory changes. [] Endocrine: Denies polyuria or polydipsia. [] Lymphatic: Denies swollen glands. [] Psychiatric: Denies depression or anxiety. [] Heart Score: C/O Chest Pain: N/A Risk Factors: Risk Factors: DM, Current or recent (<one month) smoker, HTN, HLP, family history of CAD, obesity. Risk Scores: Score 0 - 3: 2.5% MACE over next 6 weeks - Discharge Home Score 4 - 6: 20.3% MACE over next 6 weeks - Admit for Clinical Observation Score 7 - 10: 72.7% MACE over next 6 weeks - Early Invasive Strategies Allergies: Allergies: Allergies Coded Allergies Type Severity Reaction Last Updated Verified No Known Drug Allergies 06/12/19 No Physical Exam: PE: Constitutional: Well developed, well nourished, no acute distress, non-toxic appearance. [] HENT: Normocephalic, atraumatic, bilateral external ears normal, oropharynx moist, no oral exudates, nose normal. [] Eyes: PERRLA, EOMI, conjunctiva normal, no discharge. [] Neck: Normal range of motion, no tenderness, supple, no stridor. [] Cardiovascular:Heart rate regular rhythm, no murmur [] Lungs & Thorax: Bilateral breath sounds clear to auscultation [] Abdomen: Bowel sounds normal, soft, no tenderness, no masses, no pulsatile masses. [] Skin: Warm, dry, no erythema, no rash. [] Back: No tenderness, no CVA tenderness. [] Extremities: Right index finger pain with palpation, 2.5 cm abrasion noted to the anterior portion of the finger, no active bleeding noted, neurovascular intact distal to the injury Neurologic: Alert and oriented X 3, normal motor function, normal sensory function, no focal deficits noted. [] Psychologic: Affect normal, judgement normal, mood normal. [] Current Patient Data: Vital Signs: Vital Signs Date Time Temp Pulse Resp B/P (MAP) Pulse Ox O2 Delivery O2 Flow Rate FiO2 01/12/21 17:30 98.6 100 16 112/80 (91) 97 Room Air 98.6 EKG: EKG: [] Radiology/Procedures: Radiology/Procedures: [REASON: chest pain PROCEDURE: CHEST AP ONLY AP chest. HISTORY: Chest pain AP view was taken of the chest. There is persistent density at the right costophrenic angle. A focal pneumonia is possible, mass is possible. Follow-up study recommended, CT would be of benefit if the density is not clear. Heart is normal in size. There is no pleural effusion. There is been little change compared to the study from one day ago. IMPRESSION: 1. Persistent density at the right costophrenic angle either focal pneumonia or possibly an underlying mass, follow-up recommended. Electronically signed by: Navi Merino MD (01/12/2021 4:48 PM) [facility] ] Course & Med Decision Making: Course & Med Decision Making Pertinent Labs and Imaging studies reviewed. (See chart for details) Review of x-ray shows no fracture, patient has abrasion to finger as well, patient states she cleansed the wound at home with hydrogen peroxide and soap and water, dressing was applied by patient prior to arrival and removed by nursing staff. We will send patient home with finger contusion, abrasion, will have patient watch for any signs and symptoms of infection or keep increased pain or swelling in the finger. [] Dragon Disclaimer: Dragon Disclaimer: This electronic medical record was generated, in whole or in part, using a voice recognition dictation system. Departure Departure Impression: Primary Impression: Finger contusion Qualified Codes: S60.021A - Contusion of right index finger without damage to nail, initial encounter Additional Impression: Abrasion Disposition: 01 HOME / SELF CARE / HOMELESS Condition: STABLE Referrals: NO PCP (PCP) MARIBEL WALTON DO Patient Instructions: Abrasion, [id number], Contusion, [id number] Additional Instructions: Take [id number] to Tylenol and/or ibuprofen as needed for pain Ice 20 minutes on 3-4 times daily over the next 48 to 72 hours Keep abrasions clean and dry, watch for any signs and symptoms of infection such as increased swelling, redness, foul odor or drainage Wear finger splint as needed for comfort Follow-up with orthopedic physician referral given for any increased pain or swelling that is not any better in the next 7 to 14 days NICOLAS VILLA TALENT ASSOCIATE Jan 12, 2021 17:50
--- NOTE | 2021-01-12 18:01 | RAD ---
Right index finger 3 views. HISTORY: Pain, injury 3 views were taken of the right index finger. There is not evidence of an acute fracture or osseous a bnormality. IMPRESSION: 1. No acute fracture noted in the right index finger. Electronically signed by: Navi Merino MD (01/12/2021 5:58 PM) [facility]
== END 2021-01-12 18:50 | disposition home or self-care (01) ==
LOC: ER 16:24
DX: S60.021A Contusion of right index finger without damage to nail, initial encounter (principal); F17.200 Nicotine dependence, unspecified, uncomplicated; Y28.8XXA Contact with other sharp object, undetermined intent, initial encounter; Y93.89 Activity, other specified; Y92.89 Other specified places as the place of occurrence of the external cause; Y99.8 Other external cause status
CPT/HCPCS: 29130; 73140; 99283

== ENCOUNTER 2021-04-01 12:42 | Emergency (ER) | payer BC, MEDICAID ==
[~2021-04-01] VITALS: Ht 160 cm; Wt 52.0 kg
[2021-04-01 13:25] VITALS: BP 100/53
--- NOTE | 2021-04-01 14:10 | RAD ---
XR ELBOW COMPLETE_LEFT 3+VIEWS History: Reason: hit on wall pain / Spl. Instructions: / History: Technique: 3 views left elbow Comparison: None. Findings: No dislocation. No acute fracture. No significant elbow joint effusion. Posterior elbow soft tissue s welling. Impression: 1. No acute osseous abnormality. 2. Posterior elbow soft tissue swelling. Electronically signed by: Don Monaco DO (04/01/2021 2:07 PM) [facility]
--- NOTE | 2021-04-01 14:35 | PHYS DOC ---
Past Medical History Past Medical History: No Pertinent History Additional Past Medical Histor: SICKLE CELL TRAIT, "BACK SPASMS" Past Surgical History: Tonsillectomy, Other Additional Past Surgical Histo: FOOT Smoking Status: Current Every Day Smoker Alcohol Use: None Drug Use: None General Adult EDM: Chief Complaint: ELBOW PROBLEM HPI: HPI: Patient is a 25 year old female who presents to the ED today complaining of mild intermittent left elbow pain, symptoms began yesterday after he hit her elbow on a wall. Patient states the pain is worse on touching the elbow. Patient denies anything relieving the pain Review of Systems: Review of Systems: Constitutional: Denies fever or chills. [] Musculoskeletal: Left elbow pain Integument: Denies rash. [] Neurologic: Denies headache, focal weakness or sensory changes. [] Psychiatric: Denies depression or anxiety. [] Heart Score: C/O Chest Pain: N/A Risk Factors: Risk Factors: DM, Current or recent (<one month) smoker, HTN, HLP, family history of CAD, obesity. Risk Scores: Score 0 - 3: 2.5% MACE over next 6 weeks - Discharge Home Score 4 - 6: 20.3% MACE over next 6 weeks - Admit for Clinical Observation Score 7 - 10: 72.7% MACE over next 6 weeks - Early Invasive Strategies Allergies: Allergies: Allergies Coded Allergies Type Severity Reaction Last Updated Verified No Known Drug Allergies 06/12/19 No Physical Exam: PE: Constitutional: Well developed, well nourished, no acute distress, non-toxic appearance. [] Skin: Warm, dry, no erythema, no rash. [] Back: No tenderness, no CVA tenderness. [] Extremities: Left elbow with no obvious deformity, soft tissue swelling noted on the posterior part of the elbow, tenderness on palpation of the left olecranon. Full range of motion to the left elbow, full range of motion to the left forearm including plantarflexion and dorsiflexion of the forearm. Full range of motion to the left fingers. Adequate radial, medial, ulnar sensation to the left hand. +2 left radial pulse. Cap refill less than 2 seconds in left finger s Neurologic: Alert and oriented X 3, normal motor function, normal sensory function, no focal deficits noted. [] Psychologic: Affect normal, judgement normal, mood normal. [] Current Patient Data: Vital Signs: Vital Signs Date Time Temp Pulse Resp B/P (MAP) Pulse Ox O2 Delivery O2 Flow Rate FiO2 04/01/21 13:25 98.4 81 16 100/53 (69) 99 Room Air 98.4 EKG: EKG: [] Radiology/Procedures: Radiology/Procedures: []PROCEDURE: ELBOW LEFT 3V XR ELBOW COMPLETE_LEFT 3+VIEWS History: Reason: hit on wall pain / Spl. Instructions: / History: Technique: 3 views left elbow Comparison: None. Findings: No dislocation. No acute fracture. No significant elbow joint effusion. Posterior elbow soft tissue swelling. Impression: 1. No acute osseous abnormality. 2. Posterior elbow soft tissue swelling. Electronically signed by: Don Adams DO (04/01/2021 2:07 PM) [facility] DICTATED and SIGNED BY: DON ADAMS DO DATE: 04/01/21 [id number] 0 Course & Med Decision Making: Course & Med Decision Making Pertinent Labs and Imaging studies reviewed. (See chart for details) This is a 25-year-old female patient presenting to the ED today with left elbow pain, symptoms began yesterday after hitting the elbow on a wall. Left elbow x- rays are negative for any acute findings. Rohan bandage recommended to the elbow, ice elevation recommended. OTC pain relievers. Also provided for follow-up. Pepper Disclaimer: Pepper Disclaimer: This electronic medical record was generated, in whole or in part, using a voice recognition dictation system. Departure Departure Impression: Primary Impression: Left elbow contusion Qualified Codes: S50.02XA - Contusion of left elbow, initial encounter Disposition: HOME / SELF CARE / HOMELESS Condition: STABLE Referrals: NO PCP (PCP) SANTOS LENZ II, MD follow up in one week Patient Instructions: Contusion, [id number] Additional Instructions: You were seen for left elbow pain, your left elbow xrays are negative for any acute findings. Please ice and elevate the extremity. Take naproxen for pain. Follow up with the provided orthopedic doctor in 1 week if pain persist. MIRIAM MILLS APRN Apr 01, 2021 14:35
== END 2021-04-01 14:42 | disposition home or self-care (01) ==
LOC: ER 12:42
DX: S50.02XA Contusion of left elbow, initial encounter (principal); F17.200 Nicotine dependence, unspecified, uncomplicated; W22.01XA Walked into wall, initial encounter; Y93.89 Activity, other specified; Y92.89 Other specified places as the place of occurrence of the external cause; Y99.8 Other external cause status
CPT/HCPCS: 73080; 99283